=== PATIENT | female | born 1955 | race Hispanic/Latino ===

== ENCOUNTER 2020-11-04 09:00 | Observation (INO) | payer MEDICARE ==
[~2020-11-04] VITALS: Ht 142.2 cm; Wt 117.8 kg
[2020-11-28 10:41] LABS: EOSINOPHILS % (AUTO) 3.5 % (0.0-8.0); HEMATOCRIT 39.4 % (36-48); MEAN CORPUSCULAR HGB CONC 31.7 g/dL (32.0-36.0); MEAN CORPUSCULAR VOLUME 94.7 fL (79-99); MONOCYTES % (AUTO) 5.5 % (3.0-13.0); NEUTROPHILS % (AUTO) 62.9 % (40.0-77.0); PLATELET COUNT (AUTO) 250 K/uL (130-400); RED BLOOD CELL COUNT(AUTO) 4.16 MIL/uL (4.00-5.50); WHITE BLOOD COUNT (AUTO) 7.1 K/uL (4.8-10.8)
[2020-11-28 10:44] LABS: APPEARANCE,URINE Clear (CLEAR); BILIRUBIN,URINE Negative (NEGATIVE); COLOR,URINE Yellow (YELLOW); GLUCOSE, URINE (UA) Negative (NEGATIVE); KETONES,URINE Negative (NEGATIVE); LEUKOCYTE ESTERASE ,URINE Small (NEGATIVE); NITRATE,URINE Negative (NEGATIVE); OCCULT BLOOD,URINE Nonhemolyzed Trace (NEGATIVE); PH,URINE 6.5 (5.0-8.0); PROTEIN,URINE Negative (NEGATIVE)
[2020-11-28 10:54] LABS: INR 1.02 (0.85-1.15); PROTHROMBIN TIME 11.1 SEC (9.6-11.6)
[2020-11-28 10:57] LABS: BACTERIA,URINE Rare /HPF (None Seen); RBC,URINE 0-1 /HPF (0-1); WBC,URINE 0-1 /HPF (0-1)
[2020-11-28 10:58] LABS: SQUAMOUS EPITHELIAL CELL,UR Few /HPF (0-2)
[2020-11-28 11:02] LABS: CREATININE 0.5 mg/dL (0.5-1.5); POTASSIUM 4.3 mmol/L (3.5-5.1)
[2020-11-29 15:15] VITALS: BP 163/70
[2020-11-29] MEDS ORDERED: vitamin d3 PO (15:55)
[2020-11-29] MEDS ORDERED: AEC81 PO (15:55)
[2020-11-29] MEDS ORDERED: OLME-7 PO (15:55)
[2020-11-29] MEDS ORDERED: BRIM5DRO OU (15:55)
[2020-11-30] VITALS (26 sets, daily range): BP systolic 94–160; BP diastolic 38–75
[2020-11-30] MEDS ORDERED: LACTATED RINGERS 1000ML 1,000 ML IV ONE (07:46)
[2020-11-30] MEDS: CEFAZOLIN SODIUM 1 GM VIAL ONE ×2 (07:50→10:45)
[2020-11-30] MEDS ORDERED: CEFAZOLIN SODIUM 1 GM VIAL ONE (08:35)
[2020-11-30] MEDS ORDERED: TRANEXAMIC ACID 1000MG/10ML ONE ×2 (08:35→13:46)
[2020-11-30] MEDS ORDERED: PROPOFOL 10 MG/ML 20ML VIAL IV ONE (09:57)
[2020-11-30] MEDS ORDERED: SUCCINYLCHOLINE CHLORIDE 20 MG/ML 10 ML VIAL ONE (09:57)
[2020-11-30] MEDS ORDERED: DEXAMETHASONE SOD PHOSPHATE 10MG/ML 1ML VIAL ONE (09:57)
[2020-11-30] MEDS ORDERED: ONDANSETRON 4MG INJ ONE (09:57)
[2020-11-30] MEDS ORDERED: GLYCOPYRROLATE 1 MG/5 ML SYRINGE ONE (09:57)
[2020-11-30] MEDS ORDERED: LIDOCAINE PF 100MG/5ML (2%) SYRINGE 5ML ONE (09:57)
[2020-11-30] MEDS ORDERED: NEOSTIGMINE 5MG/5ML SYR IV ONE (09:58)
[2020-11-30] MEDS ORDERED: FENTANYL CITRATE PF 50 MCG/1 ML 2ML VIAL ONE (09:58)
[2020-11-30] MEDS ORDERED: ROCURONIUM 10MG/1ML SYR 10 MG/ML ML ONE ×2 (09:58→11:56)
[2020-11-30] MEDS ORDERED: MIDAZOLAM HCL 1 MG/ML 2ML VIAL ONE (09:58)
[2020-11-30] MEDS ORDERED: ROPIVACAINE 0.5% 5MG/ML 30ML IJ ONE (10:10)
[2020-11-30] MEDS ORDERED: EPHEDRINE SULFATE 50 MG/ML AMPULE ONE (10:51)
[2020-11-30] MEDS ORDERED: MEPERIDINE-PF 25 MG/ML SYG ONE ×3 (13:23→14:23)
[2020-11-30] MEDS ORDERED: POTASSIUM CHLORIDE 10% ELIXIR 20 MEQ/15 ML UDCUP PO PRN (13:30)
[2020-11-30] MEDS: 0.9%NACL 1000ML 1,000 ML IV SCH ×2 (13:30→20:07)
[2020-11-30] MEDS ORDERED: TEMAZEPAM 15 MG CAPSULE PO PRN (13:30)
[2020-11-30] MEDS ORDERED: DiphenhydrAMINE HCL 50 MG/ML VIAL IVP PRN (13:30)
[2020-11-30] MEDS: ACETAMINOPHEN 500 MG TABLET PO SCH ×2 (13:30→20:07)
[2020-11-30] MEDS ORDERED: CALCIUM CARB 500MG PO PRN (13:30)
[2020-11-30] MEDS ORDERED: TRAMADOL HCL 50 MG TABLET PO PRN (13:30)
[2020-11-30] MEDS ORDERED: POTASSIUM CHLORIDE 20MEQ/100ML 100 ML IV PRN (13:30)
[2020-11-30] MEDS ORDERED: ONDANSETRON 4MG INJ IVP PRN (13:30)
[2020-11-30] MEDS ORDERED: KETOROLAC 15MG/ML VIAL (15MG/ML) IV PRN (13:30)
[2020-11-30] MEDS ORDERED: LIDOCAINE HCL-MPF 1% 2ML VIAL IV PRN (13:30)
[2020-11-30] MEDS ORDERED: FERROUS FUMARATE 324 MG TABLET PO PRN (13:30)
[2020-11-30] MEDS: CELECOXIB 200 MG CAP PO SCH (20:04)
[2020-11-30] MEDS: CEFAZOLIN 3GM /D5W 100ML 100 ML IV SCH (20:04)
[2020-11-30] MEDS: PREGABALIN 25 MG CAP PO SCH (20:07)
[2020-11-30] MEDS: OXYCODONE HCL 5 MG TAB PO PRN (20:09)
[2020-11-30] MEDS: BRIMONIDINE TARTRATE 0.2% 5 ML BOTTLE OU SCH (21:00)
[2020-11-30] MEDS: TIMOLOL MALEATE 0.5% 5 ML BOTTLE OP SCH (21:00)
[2020-12-01] VITALS: BP 113/55
[2020-12-01] MEDS: CEFAZOLIN 3GM /D5W 100ML 100 ML IV SCH (01:43)
[2020-12-01] MEDS: OXYCODONE HCL 5 MG TAB PO PRN ×3 (01:43→12:50)
[2020-12-01 04:00] VITALS: BP 129/77
[2020-12-01 05:08] LABS: HEMATOCRIT 31.3 % (36-48); MEAN CORPUSCULAR HEMOGLOBIN 30.4 pg (27.0-33.0); MEAN CORPUSCULAR HGB CONC 32.6 g/dL (32.0-36.0); MEAN CORPUSCULAR VOLUME 93.2 fL (79-99); RED BLOOD CELL COUNT(AUTO) 3.36 MIL/uL (4.00-5.50); RED CELL DISTRIBUTION WIDTH 12.9 % (11.0-15.5); WHITE BLOOD COUNT (AUTO) 10.6 K/uL (4.8-10.8)
[2020-12-01] MEDS: ACETAMINOPHEN 500 MG TABLET PO SCH ×3 (05:08→20:03)
[2020-12-01 05:18] LABS: CREATININE 0.5 mg/dL (0.5-1.5); POTASSIUM 3.4 mmol/L (3.5-5.1)
[2020-12-01] MEDS: KCL 20 MEQ ERTAB PO PRN ×2 (07:01→13:01)
[2020-12-01 08:00] VITALS: BP 142/65
[2020-12-01] MEDS: CELECOXIB 200 MG CAP PO SCH ×2 (08:20→20:03)
[2020-12-01] MEDS: HYDROCHLOROTHIAZIDE 25 MG TABLET PO SCH (08:20)
[2020-12-01] MEDS: PREGABALIN 25 MG CAP PO SCH ×2 (08:20→20:03)
[2020-12-01] MEDS: LOSARTAN 100 MG TABLET PO SCH (08:22)
[2020-12-01] MEDS: APIXABAN 2.5 MG TABLET PO SCH ×2 (08:22→20:03)
[2020-12-01] MEDS: BRIMONIDINE TARTRATE 0.2% 5 ML BOTTLE OU SCH ×2 (08:29→20:11)
[2020-12-01] MEDS: TIMOLOL MALEATE 0.5% 5 ML BOTTLE OP SCH ×2 (08:29→20:11)
[2020-12-01] MEDS: POLYETHYLENE GLYCOL 3350 17 GM POWD.PACK PO SCH (08:30)
[2020-12-01] MEDS: 0.9%NACL 1000ML 1,000 ML IV SCH (09:30)
[2020-12-01 11:48] VITALS: BP 129/58
[2020-12-01 16:00] VITALS: BP 151/71
[2020-12-01 19:40] VITALS: BP 127/51
[2020-12-02 00:13] VITALS: BP 143/58
[2020-12-02 03:34] VITALS: BP 103/48
[2020-12-02] MEDS: ACETAMINOPHEN 500 MG TABLET PO SCH ×2 (04:14→13:30)
[2020-12-02 07:44] VITALS: BP 107/49
[2020-12-02] MEDS: TIMOLOL MALEATE 0.5% 5 ML BOTTLE OP SCH (09:00)
[2020-12-02] MEDS: BRIMONIDINE TARTRATE 0.2% 5 ML BOTTLE OU SCH (09:00)
[2020-12-02] MEDS: LOSARTAN 100 MG TABLET PO SCH (09:38)
[2020-12-02] MEDS: PREGABALIN 25 MG CAP PO SCH (09:39)
[2020-12-02] MEDS: CELECOXIB 200 MG CAP PO SCH (09:39)
[2020-12-02] MEDS: POLYETHYLENE GLYCOL 3350 17 GM POWD.PACK PO SCH (09:39)
[2020-12-02] MEDS: HYDROCHLOROTHIAZIDE 25 MG TABLET PO SCH (09:39)
[2020-12-02] MEDS: APIXABAN 2.5 MG TABLET PO SCH (09:39)
[2020-12-02] MEDS: OXYCODONE HCL 5 MG TAB PO PRN ×2 (09:40→18:34)
[2020-12-02 11:16] VITALS: BP 115/50
[2020-12-02 16:38] VITALS: BP 133/53
[2020-12-02] MEDS ORDERED: APIX2.5T PO (17:02)
[2020-12-02] MEDS ORDERED: HYDR-4060 PO (17:02)
[2020-12-03] MEDS ORDERED: BISACODYL 10 MG SUPP.RECT RC PRN (13:30)
== END 2020-12-02 19:23 | disposition home or self-care (01) ==
LOC: EDSTATUS 09:00 → DAHIP 11-30 06:30 → 3AH 11-30 15:52
PROVIDERS: ADMIT Orthopaedic Surgery; ATTEND Orthopaedic Surgery
DX: M17.12 Unilateral primary osteoarthritis, left knee (principal); Z20.822 Contact with and (suspected) exposure to COVID-19; I10 Essential (primary) hypertension; K57.92 Diverticulitis of intestine, part unspecified, without perforation or abscess without bleeding; K80.80 Other cholelithiasis without obstruction; D64.9 Anemia, unspecified; K42.9 Umbilical hernia without obstruction or gangrene; E66.01 Morbid (severe) obesity due to excess calories; M25.562 Pain in left knee; G89.29 Other chronic pain; Z79.899 Other long term (current) drug therapy; Z90.49 Acquired absence of other specified parts of digestive tract; Z98.890 Other specified postprocedural states; Z99.89 Dependence on other enabling machines and devices; Z68.43 Body mass index [BMI] 50.0-59.9, adult
CPT/HCPCS: 36415; 80048; 81001; 85025; 85027; 85610; 87088; 87635; 87641; 88305; 88311; 96361; 96365; 96366; 96375; 97039; G0378; J0330; J0690; J1100; J2001; J2175; J2250; J2405; J2704; J2710; J2795; J3010; J3490; J7120

== ENCOUNTER 2021-09-18 07:57 | Observation (INO) | payer MEDICARE ==
[2021-09-15 11:27] LABS: BASOPHILS % (AUTO) 0.8 % (0.0-5.0); EOSINOPHILS % (AUTO) 5.8 % (0.0-8.0); HEMATOCRIT 39.6 % (36-48); LYMPHOCYTES % (AUTO) 30.4 % (21.0-51.0); MEAN CORPUSCULAR HEMOGLOBIN 29.9 pg (27.0-33.0); MEAN CORPUSCULAR HGB CONC 32.3 g/dL (32.0-36.0); MEAN CORPUSCULAR VOLUME 92.5 fL (79-99); MONOCYTES % (AUTO) 6.2 % (3.0-13.0); NEUTROPHILS % (AUTO) 56.3 % (40.0-77.0); PLATELET COUNT (AUTO) 239 K/uL (130-400); RED BLOOD CELL COUNT(AUTO) 4.28 MIL/uL (4.00-5.50); RED CELL DISTRIBUTION WIDTH 13.2 % (11.0-15.5); WHITE BLOOD COUNT (AUTO) 6.3 K/uL (4.8-10.8)
[2021-09-15 11:33] LABS: CREATININE 0.5 mg/dL (0.5-1.5); POTASSIUM 4.3 mmol/L (3.5-5.1)
[2021-09-15 11:38] LABS: PROTHROMBIN TIME 10.9 SEC (9.6-11.6)
[2021-09-15 11:40] LABS: PARTIAL THROMBOPLASTIN TIME 27.8 SEC (26.3-35.5)
[2021-09-15 12:02] LABS: APPEARANCE,URINE CLOUDY (CLEAR); BILIRUBIN,URINE NEGATIVE (NEGATIVE); COLOR,URINE YELLOW (YELLOW); GLUCOSE, URINE (UA) NEGATIVE (NEGATIVE); KETONES,URINE NEGATIVE (NEGATIVE); LEUKOCYTE ESTERASE ,URINE LARGE (NEGATIVE); NITRATE,URINE POSITIVE (NEGATIVE); OCCULT BLOOD,URINE TRACE-INTACT (NEGATIVE); PH,URINE 7.5 (5.0-8.0); PROTEIN,URINE NEGATIVE (NEGATIVE); UROBILINOGEN,URINE 0.2 mg/dL (0.2-1.0)
[2021-09-15 12:18] LABS: BACTERIA,URINE Many /HPF (None Seen); RBC,URINE 0-1 /HPF (0-1)
[2021-09-15 12:44] VITALS: BP 193/70
[~2021-09-18] VITALS: Ht 129.5 cm; Wt 120.8 kg
[2021-09-18] VITALS (23 sets, daily range): BP systolic 141–168; BP diastolic 65–96
[~2021-09-18 07:57] MED LIST: ASPI-1443 PO; BRIM5DRO OP; DEXAMETHASONE SOD PHOSPHATE 10MG/ML 1ML VIAL ONE; FENTANYL CITRATE PF 50 MCG/1 ML 2ML VIAL ONE; GENTAMICIN SULFATE 240 MG in 0.9%NACL 100ML 100 ML IV SCH; GLYCOPYRROLATE 1 MG/5 ML SYRINGE ONE; LACTATED RINGERS 1000ML 1,000 ML IV ONE; LIDOCAINE PF 100MG/5ML (2%) SYRINGE 5ML ONE; MIDAZOLAM HCL 1 MG/ML 2ML VIAL ONE; NAPR-1023 PO; NEOSTIGMINE 5MG/5ML SYR IV ONE; OLME-7 PO; ONDANSETRON 4MG INJ ONE; PROPOFOL 10 MG/ML 20ML VIAL IV ONE; ROCURONIUM 10MG/1ML SYR 10 MG/ML ML ONE; ROPIVACAINE 0.5% 5MG/ML 30ML IJ ONE; SUCCINYLCHOLINE CHLORIDE 20 MG/ML 10 ML VIAL ONE; tylenol arthritis PO; vitamin d PO
[2021-09-18] MEDS ORDERED: CEFAZOLIN SODIUM 1 GM VIAL IVP ONE (08:00)
[2021-09-18] MEDS ORDERED: CEFAZOLIN SODIUM 1 GM VIAL ONE ×2 (08:32→20:22)
[2021-09-18] MEDS ORDERED: TRANEXAMIC ACID 1000MG/10ML ONE ×2 (08:34→11:49)
[2021-09-18] MEDS ORDERED: PROPOFOL 10 MG/ML 20ML VIAL IV ONE (09:01)
[2021-09-18] MEDS ORDERED: CEFAZOLIN SODIUM 3 GM VIAL IV ONE (09:20)
[2021-09-18] MEDS ORDERED: TRANEXAMIC ACID 1000MG/10ML IV ONE (09:27)
[2021-09-18] MEDS ORDERED: CEFAZOLIN SODIUM 1 GM VIAL IRRIG ONE (09:40)
[2021-09-18] MEDS ORDERED: FENTANYL CITRATE PF 50 MCG/1 ML 2ML VIAL ONE (11:11)
[2021-09-18] MEDS ORDERED: ONDANSETRON 4MG INJ ONE (11:18)
[2021-09-18] MEDS ORDERED: GLYCOPYRROLATE 1 MG/5 ML SYRINGE ONE (11:19)
[2021-09-18] MEDS ORDERED: TRAMADOL HCL 50 MG TABLET PO PRN (11:30)
[2021-09-18] MEDS ORDERED: ONDANSETRON 4MG INJ IVP PRN (11:30)
[2021-09-18] MEDS ORDERED: KETOROLAC 15MG/ML VIAL (15MG/ML) IV PRN (11:30)
[2021-09-18] MEDS: CEFAZOLIN SODIUM 3 GM in DEXTROSE 5%-WATER 100 ML IVP SCH ×2 (11:30→20:38)
[2021-09-18] MEDS ORDERED: CALCIUM CARB 500MG PO PRN (11:30)
[2021-09-18] MEDS: ACETAMINOPHEN 500 MG TABLET PO SCH ×2 (11:30→20:38)
[2021-09-18] MEDS ORDERED: LIDOCAINE HCL-MPF 1% 2ML VIAL IV PRN (11:30)
[2021-09-18] MEDS ORDERED: POTASSIUM CHLORIDE 20MEQ/100ML 100 ML IV PRN (11:30)
[2021-09-18] MEDS ORDERED: POTASSIUM CHLORIDE 10% ELIXIR 20 MEQ/15 ML UDCUP PO PRN (11:30)
[2021-09-18] MEDS ORDERED: FERROUS FUMARATE 324 MG TABLET PO PRN (11:30)
[2021-09-18] MEDS ORDERED: DiphenhydrAMINE HCL 50 MG/ML VIAL IVP PRN (11:30)
[2021-09-18] MEDS ORDERED: EPHEDRINE SULFATE 50 MG/ML AMPULE ONE (11:40)
[2021-09-18] MEDS ORDERED: MEPERIDINE-PF 25 MG/ML SYG ONE ×2 (12:21→12:34)
[2021-09-18] MEDS: OXYCODONE HCL 5 MG TAB PO PRN ×2 (13:54→20:44)
[2021-09-18] MEDS: 0.9%NACL 1000ML 1,000 ML IV SCH ×2 (13:56→20:47)
[2021-09-18] MEDS: OLMESARTAN HCTZ PO SCH ×2 (14:30→15:14)
[2021-09-18] MEDS: PREGABALIN 25 MG CAP PO SCH (20:35)
[2021-09-18] MEDS: NITROFURANTOIN MONOHYD/M-CRYST 100 MG CAPSULE PO SCH (20:35)
[2021-09-18] MEDS: CELECOXIB 200 MG CAP PO SCH (20:35)
[2021-09-18] MEDS: FAMOTIDINE 20MG TAB PO SCH (20:35)
[2021-09-18] MEDS: Brimonidine Tartrate/Timolol (Combigan Eye Drops) OP SCH (20:47)
[2021-09-19 00:17] VITALS: BP 139/64
[2021-09-19] MEDS: CEFAZOLIN SODIUM 3 GM in DEXTROSE 5%-WATER 100 ML IVP SCH (03:47)
[2021-09-19] MEDS: ACETAMINOPHEN 500 MG TABLET PO SCH ×3 (03:51→20:37)
[2021-09-19 05:14] LABS: HEMATOCRIT 33.8 % (36-48); MEAN CORPUSCULAR HEMOGLOBIN 29.7 pg (27.0-33.0); MEAN CORPUSCULAR HGB CONC 32.5 g/dL (32.0-36.0); MEAN CORPUSCULAR VOLUME 91.4 fL (79-99); RED BLOOD CELL COUNT(AUTO) 3.7 MIL/uL (4.00-5.50); RED CELL DISTRIBUTION WIDTH 12.9 % (11.0-15.5); WHITE BLOOD COUNT (AUTO) 11.5 K/uL (4.8-10.8)
[2021-09-19 05:15] VITALS: BP 153/74
[2021-09-19 05:30] LABS: CREATININE 0.6 mg/dL (0.5-1.5); POTASSIUM 3.5 mmol/L (3.5-5.1)
[2021-09-19] MEDS: OXYCODONE HCL 5 MG TAB PO PRN ×2 (06:57→20:38)
[2021-09-19] MEDS: 0.9%NACL 1000ML 1,000 ML IV SCH (07:30)
[2021-09-19 08:12] VITALS: BP 149/77
[2021-09-19] MEDS: Brimonidine Tartrate/Timolol (Combigan Eye Drops) OP SCH ×2 (09:00→20:41)
[2021-09-19] MEDS: POLYETHYLENE GLYCOL 3350 17 GM POWD.PACK PO SCH (09:16)
[2021-09-19] MEDS: ASPIRIN 81 MG EC TAB PO SCH (09:16)
[2021-09-19] MEDS: APIXABAN 2.5 MG TABLET PO SCH ×2 (09:16→20:36)
[2021-09-19] MEDS: FAMOTIDINE 20MG TAB PO SCH ×2 (09:16→20:37)
[2021-09-19] MEDS: PREGABALIN 25 MG CAP PO SCH ×2 (09:16→20:37)
[2021-09-19] MEDS: NITROFURANTOIN MONOHYD/M-CRYST 100 MG CAPSULE PO SCH ×2 (09:16→20:37)
[2021-09-19] MEDS: CELECOXIB 200 MG CAP PO SCH ×2 (09:16→20:37)
[2021-09-19 11:18] VITALS: BP 151/67
[2021-09-19 16:56] VITALS: BP 141/76
[2021-09-19] MEDS: KCL 20 MEQ ERTAB PO PRN ×2 (17:03→20:38)
[2021-09-19 19:00] VITALS: BP 145/54
[2021-09-20] VITALS: BP 109/49
[2021-09-20 04:00] VITALS: BP 119/61
[2021-09-20] MEDS: OXYCODONE HCL 5 MG TAB PO PRN ×3 (05:11→19:26)
[2021-09-20] MEDS: ACETAMINOPHEN 500 MG TABLET PO SCH ×3 (05:12→19:30)
[2021-09-20 08:40] VITALS: BP 135/61
[2021-09-20] MEDS: OLMESARTAN HCTZ PO SCH (09:00)
[2021-09-20] MEDS: Brimonidine Tartrate/Timolol (Combigan Eye Drops) OP SCH (09:00)
[2021-09-20 11:17] VITALS: BP 111/56
[2021-09-20] MEDS: NITROFURANTOIN MONOHYD/M-CRYST 100 MG CAPSULE PO SCH (11:28)
[2021-09-20] MEDS: FAMOTIDINE 20MG TAB PO SCH (11:28)
[2021-09-20] MEDS: PREGABALIN 25 MG CAP PO SCH (11:28)
[2021-09-20] MEDS: CELECOXIB 200 MG CAP PO SCH (11:28)
[2021-09-20] MEDS: APIXABAN 2.5 MG TABLET PO SCH (11:28)
[2021-09-20] MEDS: ASPIRIN 81 MG EC TAB PO SCH (11:29)
[2021-09-20] MEDS: POLYETHYLENE GLYCOL 3350 17 GM POWD.PACK PO SCH (11:32)
[2021-09-20 17:43] VITALS: BP 132/54
[2021-09-20] MEDS ORDERED: NITR100C4 PO (19:37)
[2021-09-20] MEDS ORDERED: HYDR-4060 PO (19:37)
[2021-09-20] MEDS ORDERED: APIX2.5T PO (19:37)
[2021-09-21] MEDS ORDERED: BISACODYL 10 MG SUPP.RECT RC PRN (11:30)
[2021-09-21] MEDS ORDERED: HYDR-4060 PO (15:17)
== END 2021-09-20 20:30 | disposition other institution, planned readmission (95) ==
LOC: DAH 07:57 → DAHIP 07:58 → 4AH 13:18
PROVIDERS: ADMIT Orthopaedic Surgery; ATTEND Orthopaedic Surgery
DX: M17.11 Unilateral primary osteoarthritis, right knee (principal); Z20.822 Contact with and (suspected) exposure to COVID-19; I10 Essential (primary) hypertension; M17.12 Unilateral primary osteoarthritis, left knee; K57.92 Diverticulitis of intestine, part unspecified, without perforation or abscess without bleeding; D64.9 Anemia, unspecified; E66.01 Morbid (severe) obesity due to excess calories; N39.0 Urinary tract infection, site not specified; Z96.652 Presence of left artificial knee joint; Z79.899 Other long term (current) drug therapy; Z98.890 Other specified postprocedural states; Z90.49 Acquired absence of other specified parts of digestive tract; Z68.45 Body mass index [BMI] 70 or greater, adult
CPT/HCPCS: 27447; 36415 ×2; 80048 ×2; 81001; 85025; 85027; 85610; 85730; 87077; 87088; 87186; 87635; 87641; 96365; 96366; 97039 ×4; 97116 ×4; 97161; 97530 ×2; A4215; A4221; A4222; A4223; A4649 ×3; A4663; A5120; A9272; C1776; C9803; G0378 ×53; J0330; J0690 ×6; J1100; J1580; J2001; J2175 ×2; J2250; J2405 ×2; J2704 ×2; J2710; J2795; J3010 ×2; J3490 ×6; J7030 ×2; J7060; J7120 ×2